=== PATIENT | female | born 1995 ===

== ENCOUNTER 2022-12-31 17:32 | Emergency (ER) | payer BC ==
[2022-12-31] MEDS ORDERED: Sodium Chloride 0.9% 10 ML Syringe FLUSH PRN (17:48)
[2022-12-31] MEDS ORDERED: LORazepam 2 MG/ML SDV IVPUSH ONE (17:56)
[2022-12-31] MEDS ORDERED: Sodium Chloride 0.9% 500 ML IV ONE (17:57)
[2022-12-31 18:07] LABS: BASOPHILS ABSOLUTE AUTO 0.03 K/uL (0.00-0.20); BASOPHILS PERCENT AUTO 0.4 % (0.0-2.0); EOSINOPHILS ABSOLUTE AUTO 0.35 K/uL (0.00-0.50); EOSINOPHILS PERCENT AUTO 4.6 % (0.0-5.0); HEMATOCRIT 41.1 % (34.0-46.0); HEMOGLOBIN 13.6 g/dL (11.7-15.5); LYMPHOCYTES ABSOLUTE AUTO 3.51 K/uL (0.50-3.50); LYMPHOCYTES PERCENT AUTO 45.7 % (10.0-50.0); MEAN CORPUSCULAR HEMOGLOBIN 28.9 pg (28.2-33.3); MEAN CORPUSCULAR HGB CONC 33.1 g/dL (31.7-36.0); MEAN CORPUSCULAR VOLUME 87.3 fL (84.0-98.0); MONOCYTES ABSOLUTE AUTO 0.76 K/uL (0.00-1.00); MONOCYTES PERCENT AUTO 9.9 % (2.0-14.0); NEUTROPHILS ABSOLUTE AUTO 3.03 K/uL (1.40-7.00); NEUTROPHILS PERCENT AUTO 39.4 % (45.0-80.0); PLATELET COUNT,PLT 213 K/uL (150-350); RED BLOOD CELL COUNT 4.71 M/uL (3.77-5.09); RED CELL DISTRIBUTION WIDTH 12.8 % (11.2-14.1); WHITE BLOOD CELL COUNT,WBC 7.7 K/uL (4.0-10.2)
[2022-12-31 18:36] LABS: ANION GAP 5.5 meq/L (7-15); BILIRUBIN TOTAL 0.5 mg/dL (0.2-1.0); CALCIUM 9.2 mg/dL (8.5-10.1); CARBON DIOXIDE,CO2 29.5 mmol/L (21.0-32.0); CREATININE 0.77 mg/dL (0.51-1.17); EST CRCL DRUG DOSING (CG) 107.67 mL/min; POTASSIUM,K 3.9 mmol/L (3.5-5.1); PROTEIN TOTAL,TP 8.2 g/dL (6.4-8.2)
[2022-12-31] MEDS ORDERED: Take Home: diazePAM 5 MG, 4 Tab Pack PO ONE (19:05)
[2022-12-31 19:38] VITALS: BP 131/88; PULSE 88
== END 2022-12-31 19:20 | disposition home or self-care (01) ==
LOC: LL.ED 17:32
DX: F41.9 Anxiety disorder, unspecified (principal)
CPT/HCPCS: 36415; 71046; 80053; 82550; 84484; 85025; 93005; 93010; 96361; 96374; 99284; 99285-25; A9270-GY; J2060; J7030